=== PATIENT | female | born 1975 | race African-American/Black ===

== ENCOUNTER → 2017-02-21 | Outpatient (CLI) | payer BC ==
--- NOTE | 2017-02-22 15:36 | MY ---
EXAMINATION: Bilateral digital mammography utilizing CAD with left breast ultrasound. HISTORY: Screening exam. No comparisons. FINDINGS: Bilateral heterogeneously dense breast tissue. Otherwise, no suspicious calcifications, masses or architectural distortions. No pathologic appearing lymph nodes, no abnormal skin thickening or nipple inversion. CAD highlighted regions appear normal at this time. Left breast ultrasound was performed demonstrating multiple predominantly simple cysts, the largest measuring 2.1 x 1.3 cm. There are mildly complex cyst noted at the 1 o'clock position measuring 0.8 cm. There is also a cluster of small cysts noted at the 1 o'clock position overall measuring approxi mately 1 cm. These all demonstrate posterior acoustic enhancement and no internal color Doppler flow . IMPRESSION: BI-RADS category III - probably benign. Followup in 6 months with a left breast ultrasound is recommended. THE FALSE-NEGATIVE RATE OF MAMMOGRAM IS APPROXIMATELY 10%. MANAGEMENT OF A PALPABLE ABNORMALITY MUST BE BASED UPON CLINICAL GROUNDS. SENSITIVITY FOR DETECTION OF ABNORMALITIES IN DENSE BREASTS IS LOW. NOTE: A letter will be sent to the patient regarding findings. [facility] -- SUMAYA Noonan [phone] - FAX [phone]
== END ==
LOC: MW.MAM 09:29
PROVIDERS: ATTEND Nurse Practitioner Family
DX: N63 Unspecified lump in breast (principal); Z80.3 Family history of malignant neoplasm of breast
CPT/HCPCS: 76642; G0204

== ENCOUNTER 2018-04-10 08:36 | Day surgery (SDC) | payer BC ==
[~2018-04-10 08:36] MED LIST: Midazolam 1 MG/ML 2 ML SDV ONE; Phenylephrine/Normal Saline 100 MCG/ML 10 ML Syringe ONE; Propofol 200 MG/20 ML SDV ONE; Rocuronium 10 MG/ML 10 ML Syringe ONE; Sodium Chloride 0.9% 10 ML Syringe FLUSH PRN; Sodium Chloride 0.9% 2.5 ML Syringe FLUSH PRN; ceFAZolin 1 GM in Premix Bag 1 BAG IV ONE; ePHEDrine 50 MG/ML SDV ONE; fentaNYL 250 MCG/5 ML SDV ONE
[2018-04-10] MEDS ORDERED: Bupivacaine 0.25% 10 ML SDV ONE (08:43)
[2018-04-10] MEDS ORDERED: Methylene Blue 50 MG/10 ML Ampule ONE (08:43)
--- NOTE | 2018-04-10 09:08 | PCM.PREANE ---
Preanesthetic Assessment - Anesthesia/Transfusion/Family Hx Anesthesia History: No Prior Anesthesia Family History of Anesthesia Reaction: No Transfusion History: No Prior Transfusion(s) - Review of Systems General: No Symptoms Pulmonary: No Symptoms Cardiovascular: No Symptoms Gastrointestinal: No Symptoms Neurological: No Symptoms - Physical Assessment NPO Status Date: 04/09/18 Height: 1.59 m Weight: 59.421 kg ASA Class: 2 Mental Status: Alert & Oriented x3 Airway Class: Mallampati = 1 Dentition: Reports: Normal Dentition ROM/Head Extension: Full Lungs: Clear to Auscultation, Normal Respiratory Effort Cardiovascular: Regular Rate, Regular Rhythm - Allergies Allergies/Adverse Reactions: Allergies Allergy/AdvReac Type Severity Reaction Status Date / Time caffeine Allergy Nausea Verified 04/05/18 10:41 pineapple Allergy scratchy Verified 04/05/18 10:41 throat avacodo Allergy scratchy Uncoded 04/05/18 10:41 throat enviromental allergies Allergy Itching Uncoded 04/05/18 10:41 pet dander Allergy sneezing/water Uncoded 04/05/18 10:41 eyes - Blood Blood Available: Yes Product(s) Available: PRBC - Anesthesia Plan Pre-Op Medication Ordered: None - Acknowledgements Anesthesia Type Planned: General Anesthesia Pt an Appropriate Candidate for the Planned Anesthesia: Yes Alternatives and Risks of Anesthesia Discussed w Pt/Guardian: Yes Pt/Guardian Understands and Agrees with Anesthesia Plan: Yes Additional Comments: PMH: migraines, anemia with recent hb of 9.6. Is type and held PreAnesthesia Questionnaire Cardiovascular History: Reports: Other (See Below) Other Cardiovascular History: elevated BP only during Genitourinary History: Reports: None [employer] History: Reports: Dysfunctional Uterine Bleeding, , Spontaneous Musculoskeletal History: Reports: Back Pain, Chronic Neurological History: Reports: Migraines - Past Surgical History Head Surgeries/Procedures: Reports: None - SUBSTANCE USE Smoking Status *Q: Never Smoker Recreational Drug Use History: No - HOME MEDS Home Medications: Home Meds Ascorbic Acid [Vitamin C] 2 tab.chew CHEW DAILY 04/05/18 [History] Ferrous Sulfate [Iron] 2 tab PO DAILY 04/05/18 [History] L.acidoph,Paracasei, B.lactis [Probiotic] 1 tab.chew CHEW DAILY 04/05/18 [ History] - CURRENT (IN HOUSE) MEDS Current Meds: Current Medications Sodium Chloride (Saline Flush) 10 ml FLUSH ASDIRECTED PRN PRN Reason: Keep Vein Open Sodium Chloride (Saline Flush) 2.5 ml FLUSH ASDIRECTED PRN PRN Reason: Keep Vein Open Discontinued Medications Bupivacaine HCl (Sensorcaine-Mpf 0.25%) Confirm Administered Dose 10 ml .ROUTE .STK-MED ONE Stop: 04/10/18 08:44 Ephedrine Sulfate (Ephedrine Sulfate) Confirm Administered Dose 50 mg .ROUTE .STK-MED ONE Stop: 04/10/18 07:38 Fentanyl (Sublimaze) Confirm Administered Dose 250 mcg .ROUTE .STK-MED ONE Stop: 04/10/18 07:39 Cefazolin Sodium/Dextrose 1 gm (/ Premix) 50 mls @ 100 mls/hr IV ONETIME ONE Stop: 04/10/18 06:22 Lidocaine HCl (Xylocaine-Mpf 1%) 5 ml EPIDUR .STK-MED ONE Stop: 04/10/18 07:36 Methylene Blue (Provayblue) Confirm Administered Dose 50 mg .ROUTE .STK-MED ONE Stop: 04/10/18 08:44 Midazolam HCl (Versed 1 Mg/Ml) Confirm Administered Dose 2 mg .ROUTE .STK-MED ONE Stop: 04/10/18 07:40 Phenylephrine HCl (Phenylephrine In Ns 100 Mcg/Ml) Confirm Administered Dose 1 mg .ROUTE .STK-MED ONE Stop: 04/10/18 07:38 Propofol (Diprivan 20 Ml) Confirm Administered Dose 200 mg .ROUTE .STK-MED ONE Stop: 04/10/18 07:39 Rocuronium [place] (Zemuron) Confirm Administered Dose 100 mg .ROUTE .STK-MED ONE Stop: 04/10/18 07:38
[2018-04-10 09:21] LABS: CHLORIDE,CL 103 mmol/L (98-107); SODIUM,NA 139 mmol/L (136-145)
[2018-04-10] MEDS ORDERED: Furosemide 40 MG/4 ML VIAL ONE (10:04)
[2018-04-10] MEDS ORDERED: Metoprolol Tartrate 5 MG/5 ML SDV ONE (10:04)
[2018-04-10] MEDS ORDERED: Ondansetron 4 MG/2 ML SDV ONE (10:14)
[2018-04-10] MEDS ORDERED: Ketorolac 30 MG/ML SDV ONE (10:14)
[2018-04-10] MEDS ORDERED: Dexamethasone 4 MG/ML 5 ML MDV ONE (10:14)
[2018-04-10] MEDS ORDERED: Fluorescein 5 ML Vial ONE (10:17)
[2018-04-10] MEDS ORDERED: Neostigmine Methylsulfate 1 MG/ML 5 ML Syringe ONE (11:08)
[2018-04-10] MEDS ORDERED: Glycopyrrolate 0.2 MG/ML SDV ONE (11:08)
[2018-04-10] MEDS ORDERED: Promethazine 25 MG/ML SDV IM PRN (11:34)
[2018-04-10] MEDS ORDERED: Morphine 4 MG/ML Syringe IVPUSH PRN (11:34)
[2018-04-10] MEDS ORDERED: Ketorolac 30 MG/ML SDV IVPUSH ONE (11:34)
[2018-04-10] MEDS ORDERED: Ondansetron 4 MG/2 ML SDV IVPUSH PRN (11:34)
[2018-04-10] MEDS ORDERED: Acetaminophen/oxyCODONE 325-5 MG Tab PO PRN (11:34)
[2018-04-10] MEDS ORDERED: Aluminum Hydroxide/Magnesium Hydroxide/Simethicone Susp 30 ML Cup PO PRN (11:34)
[2018-04-10] MEDS ORDERED: HYDROmorphone 2 MG/ML SDV IVPUSH ONE (11:38)
--- NOTE | 2018-04-10 11:47 | PCM.OPNOTE ---
- General Post-Op/Procedure Note Date of Surgery/Procedure: 04/10/18 Operative Procedure(s): LAVH/bilateral salpingectomy/cystoscopy Findings: Bulky fibroid uterus, normal appearing ovaries, bilateral patent ureters Pre Op Diagnosis: Uterine fibroids. Menometrorrhagia. Iron deficiency anemia Post-Op Diagnosis: Same Anesthesia Technique: General ET Tube Primary Surgeon: Suly Spence Manager Monitoring: Loco Ortega Pathology: uterus, tubes Fluid Replacement, Intraop: 1,300 EBL in mLs: 200 Complications: none known Condition: Good Free Text/Narrative:: Dictation [id number]
[2018-04-10] MEDS: fentaNYL 100 MCG/2 ML SDV IVPUSH PRN ×2 (11:50→11:55)
--- NOTE | 2018-04-10 12:31 | PCM.POSTAN ---
POST ANESTHESIA ASSESSMENT - MENTAL STATUS Mental Status: Alert, Oriented - RESPIRATORY Respiratory Status: Respiratory Rate WNL, Airway Patent, O2 Saturation Stable - CARDIOVASCULAR CV Status: Pulse Rate WNL, Blood Pressure Stable - GASTROINTESTINAL GI Status: No Symptoms - POST OP HYDRATION Hydration Status: Adequate & Stable
[2018-04-10] MEDS: Acetaminophen/oxyCODONE 325-5 MG Tab PO PRN (13:36)
--- NOTE | 2018-04-10 17:49 | OR ---
SURGEON: Suly Spence M.D. DATE OF PROCEDURE: 04/10/2018 PREOPERATIVE DIAGNOSES: 1. Uterine fibroids. 2. Menometrorrhagia. 3. Iron-deficiency anemia. POSTOPERATIVE DIAGNOSES: 1. Uterine fibroids. 2. Menometrorrhagia. 3. Iron-deficiency anemia. PROCEDURES: Laparoscopic-assisted vaginal hysterectomy, bilateral salpingectomy, cystoscopy. ANESTHESIA: General endotracheal anesthesia. RETURNED GOODS RECEIVING CLERK: Loco Ortega MD ESTIMATED BLOOD LOSS: 200 mL. FLUIDS: 1300 mL of crystalloid. COMPLICATIONS: None known. FINDINGS: Bulky fibroid uterus. Normal-appearing ovaries. Bilateral patent ureters with cystoscopy. DISPOSITION: The patient to PACU. SPECIMENS: Pathology. PROCEDURE IN DETAIL: Alejandra is a 42-year-old female, who has been struggling with menometrorrhagia secondary to uterine fibroid with submucosal component. After discussing her options, she would like to proceed with definitive intervention in the form of hysterectomy. Risks of the procedure have been discussed with her and proper consent obtained. The patient was taken to the operating room and underwent general endotracheal anesthesia, was placed in modified dorsal position, prepped and draped in the usual sterile fashion. SCDs lower extremities. Received Ancef prophylactically. Time-out was performed. The bladder was back filled with methylene blue. Attention was turned vaginally. Speculum was introduced. Anterior lip of cervix was grasped with an Allis clamp, and uterine HUMI manipulator was gently placed. Balloon insufflated, and then the speculum and Allis clamps were now removed. Gloves changed. Attention turned abdominally. Infraumbilically, 0.25% Marcaine was introduced in the midline. Please see nurse's notes for total amount dispensed during the procedure. A 5-mm infraumbilical midline sagittal skin incision was created, anterior abdominal wall tented upward. A Veress needle was introduced. Saline hanging drop test was performed. Pneumoperitoneum was achieved. The Veress needle was removed. A 5 mm trocar was introduced followed by laparoscope, peritoneal contents were identified. There is a left lower quadrant, right lower quadrant 5 mm trocar introduced after prepping the regions with 0.25% Marcaine and creating 5 mm skin incision. The uterus appeared bulky and enlarged, was able to visualize the pelvic sidewalls on either side and seeing the ureter peristalsing away from operative field. The left fallopian tube was tented upward and the salpingectomy was performed to the level of the cornu using LigaSure, was able to secure the utero tubo-ovarian pedicle, cauterized, and transected with LigaSure followed by the upper portion of the broad ligament. The mid broad ligament round ligament, base of the broad ligament. The peritoneum was now tented upward along the uterovesical reflection and transected with LigaSure. The right fallopian tube was tented upward and the salpingectomy was performed to cornua. The utero tubo-ovarian pedicle was able to be secured and transected followed by the broad ligament, mid broad ligament, round ligament, base of the broad ligament, and cardinal ligament. The uterovesical peritoneum was now bluntly dissected off the lower uterine segment bladder using hydrodissection. The pneumoperitoneum was now released. Laparoscopic instruments were removed, and attention was turned vaginally. A weighted speculum was placed vaginally, anterior Estela. Mimi was tented downward and the cervix was circumscribed with Bovie cautery. Anterior and posteriorly overlying mucosa was dissected away from underlying peritoneum. Peritoneum was dissected downward posteriorly and entered sharply. Longer weighted speculum was replaced with the shorter. Peritoneal contents were identified anteriorly, was able to gently dissect sharply along the peritoneum and entered the anterior cul-de-sac. Estela was placed to mobilize the bladder away from the operative field. Michelle clamp was utilized on either side to secure uterosacral ligament, transected and suture ligated with 2-0 Vicryl. Further pedicle on either side was able to be secured, transected, and suture ligated with 2-0 Vicryl. The uterus, cervix, fallopian tubes were able to be removed and handed off to accessibility lift technician to be sent to pathology. The pedicles were now closely inspected. The uterosacral ligament was plicated to the vaginal apex on either side. Hemostasis appeared evident. The cuff was now closed using 0 Vicryl in continuous running locked fashion. The cuff line inspected, found to be hemostatic except for small area in the midline, which was repaired with a single [id number] suture. Hemostasis thereafter evident. The Paz catheter had been released. Balloon desufflated and the catheter was removed. The patient had received IV Lasix in and fluorescein. The cystoscope was now gently introduced using normal saline as distention media was able to visualize the bladder. The dome of bladder was found to be intact. Trigone was also inspected and found to be intact. The right ureteral orifice followed by the left ureteral orifice was able to be visualized. Fluorescein dyed urine was seen streaming from them, helping to ensure ureteral patency. The bladder was now drained. Paz catheter was replaced. The cuff line was again inspected and found to be hemostatic. Gloves changed. Attention turned abdominally. Pneumoperitoneum was once again achieved. The laparoscope was introduced. The pelvis inspected. The pedicles were found to be hemostatic. The pelvis was copiously irrigated and suction irrigated. The relief pressure was decreased to 5 mmHg and once again inspected the pedicles, these were found to be hemostatic. Therefore, the pneumoperitoneum was released. The trocars removed under direct visualization followed by laparoscopic infraumbilical trocar. The skin edges were reapproximated using 3-0 Monocryl in subcuticular fashion. Sponge, instrument, needle counts correct x2. The patient tolerated the procedure well overall. She will go to PACU in stable condition. Specimens to pathology. OLVIN / TUCKER /[id number]
--- NOTE | 2018-04-10 18:12 | PCM.SN ---
- Free Text/Narrative Note: patient is having nausea and is cramping. She is not tolerating a regular diet yet. Explained intraop findings and procedure. Will treat with antiemetics. BPs have been stable overall, most recent diastolic BPs are just mildly elevated. Received beta bill and hydralazine intraop Continue postoperative cares. Monitor BPs. Antiemetics as needed. Labs in am.
[2018-04-10] MEDS: Ketorolac 30 MG/ML SDV IVPUSH PRN (20:01)
[2018-04-10] MEDS: Docusate Sodium 100 MG Cap PO SCH (20:02)
[2018-04-11 06:49] LABS: CHLORIDE,CL 99 mmol/L (98-107); SODIUM,NA 134 mmol/L (136-145)
[2018-04-11] MEDS: Docusate Sodium 100 MG Cap PO SCH (08:21)
[2018-04-11] MEDS: Acetaminophen/oxyCODONE 325-5 MG Tab PO PRN (08:35)
[2018-04-11] MEDS ORDERED: hydrALAZINE 20 MG/ML SDV IVPUSH ONE (09:16)
[2018-04-11] MEDS: Ketorolac 30 MG/ML SDV IVPUSH PRN (09:25)
--- NOTE | 2018-04-11 10:12 | PCM48HPAN ---
Post Anesthesia Note - EVALUATION WITHIN 48HRS OF ANESTHETIC Vital Signs in Normal Range: Yes Patient Participated in Evaluation: Yes Respiratory Function Stable: Yes Airway Patent: Yes Cardiovascular Function Stable: Yes Hydration Status Stable: Yes Pain Control Satisfactory: Yes Nausea and Vomiting Control Satisfactory: Yes Mental Status Recovered: Yes Resp Rate: 18 - COMMENTS/OBSERVATIONS Free Text/Narrative:: Has been OOB with two urinations, feels good, awaiting visit from her surgeon.
--- NOTE | 2018-04-11 10:27 | PCM.SURGPN ---
- General Info Date of Service: 04/11/18 POD#: 1 Functional Status: Reports: Pain Controlled, Tolerating Diet, Ambulating, Urinating - Review of Systems General: Denies: Fever Pulmonary: Denies: Shortness of Breath Cardiovascular: Denies: Chest Pain, Palpitations, Lightheadedness Gastrointestinal: Reports: Flatus. Denies: Abdominal Pain, Nausea, Vomiting Genitourinary: Denies: Flank Pain Neurological: Reports: No Symptoms. Denies: Dizziness, Headache Psychiatric: Reports: No Symptoms - Patient Data Vitals - Most Recent: Last Vital Signs Temp 37.3 C 04/11/18 08:22 Pulse 98 04/11/18 07:32 Resp 18 04/11/18 10:11 BP 184/100 H 04/11/18 08:58 Pulse Ox 98 04/11/18 07:32 Weight - Most Recent: 59.421 kg I&O - Last 24 Hours: Intake & Output 04/10/18 04/11/18 04/11/18 22:59 06:59 14:59 Intake Total 450 300 Output Total 1000 1600 Balance -550 -1300 Lab Results Last 24 Hrs: Laboratory Results - last 24 hr 04/11/18 04/11/18 Range/Units 04:55 04:55 WBC 6.84 (4.0-11.0) K/uL RBC 4.97 (4.30-5.90) M/uL Hgb 9.7 L (12.0-16.0) g/dL Hct 31.2 L (36.0-46.0) % MCV 62.8 L (80.0-98.0) fL MCH 19.5 L (27.0-32.0) pg MCHC 31.1 (31.0-37.0) g/dL RDW Std Deviation 41.4 (28.0-62.0) fl RDW Coeff of Aminta 18 H (11.0-15.0) % Plt Count 572 H (150-400) K/uL MPV 10.20 (7.40-12.00) fL Neut % (Auto) 73.0 (48.0-80.0) % Lymph % (Auto) 19.9 (16.0-40.0) % Sharp % (Auto) 7.0 (0.0-15.0) % Eos % (Auto) 0.0 (0.0-7.0) % Baso % (Auto) 0.1 (0.0-1.5) % Neut # (Auto) 5.0 (1.4-5.7) K/uL Lymph # (Auto) 1.4 (0.6-2.4) K/uL Sharp # (Auto) 0.5 (0.0-0.8) K/uL Eos # (Auto) 0.0 (0.0-0.7) K/uL Baso # (Auto) 0.0 (0.0-0.1) K/uL Nucleated RBC % 0.0 /100WBC Nucleated RBCs # 0 K/uL Sodium 134 L (136-145) mmol/L Potassium 4.1 (3.5-5.1) mmol/L Chloride 99 (98-107) mmol/L Carbon Dioxide 28.5 (21.0-32.0) mmol/L BUN 16 (7.0-18.0) mg/dL Creatinine 0.9 (0.6-1.0) mg/dL Est Cr Clr Drug Dosing 65.21 mL/min Estimated GFR (MDRD) > 60.0 ml/min Glucose 120 H (74-106) mg/dL Calcium 8.9 (8.5-10.1) mg/dL Med Orders - Current: Current Medications Al Hydroxide/Mg Hydroxide (Mag-Al Plus) 30 ml PO Q4H PRN PRN Reason: Indigestion Docusate Sodium (Colace) 100 mg PO BID LC Last Admin: 04/11/18 08:21 Dose: 100 mg Fentanyl (Sublimaze) 50 mcg IVPUSH Q5M PRN PRN Reason: Pain (severe 7-10) Stop: 04/11/18 11:39 Last Admin: 04/10/18 11:55 Dose: 50 mcg Ketorolac Tromethamine (Toradol) 30 mg IVPUSH Q6H PRN PRN Reason: Pain (severe 7-10) Stop: 04/15/18 11:34 Last Admin: 04/11/18 09:25 Dose: 30 mg Morphine Sulfate (Morphine) 4 mg IVPUSH Q2H PRN PRN Reason: Pain (severe 7-10) Last Admin: 04/10/18 15:32 Dose: 4 mg Ondansetron HCl (Zofran) 4 mg IVPUSH Q6H PRN PRN Reason: Nausea/Vomiting Last Admin: 04/10/18 18:02 Dose: 4 mg Oxycodone/Acetaminophen (Percocet 325-5 Mg) 1 tab PO Q4H PRN PRN Reason: Pain (moderate 4-6) Oxycodone/Acetaminophen (Percocet 325-5 Mg) 2 tab PO Q4H PRN PRN Reason: Pain (moderate 4-6) Last Admin: 04/11/18 08:35 Dose: 2 tab Promethazine HCl (Phenergan) 25 mg IM Q6H PRN PRN Reason: Nausea/Vomiting Sodium Chloride (Saline Flush) 10 ml FLUSH ASDIRECTED PRN PRN Reason: Keep Vein Open Sodium Chloride (Saline Flush) 2.5 ml FLUSH ASDIRECTED PRN PRN Reason: Keep Vein Open Discontinued Medications Bupivacaine HCl (Sensorcaine-Mpf 0.25%) Confirm Administered Dose 10 ml .ROUTE .STK-MED ONE Stop: 04/10/18 08:44 Dexamethasone (Dexamethasone) Confirm Administered Dose 20 mg .ROUTE .STK-MED ONE Stop: 04/10/18 10:15 Ephedrine Sulfate (Ephedrine Sulfate) Confirm Administered Dose 50 mg .ROUTE .STK-MED ONE Stop: 04/10/18 07:38 Fentanyl (Sublimaze) Confirm Administered Dose 250 mcg .ROUTE .STK-MED ONE Stop: 04/10/18 07:39 Fluorescein Sodium (Ak-Fluor) Confirm Administered Dose 5 ml .ROUTE .STK-MED ONE Stop: 04/10/18 10:18 Furosemide (Lasix) Confirm Administered Dose 40 mg .ROUTE .STK-MED ONE Stop: 04/10/18 10:05 Glycopyrrolate (Robinul) Confirm Administered Dose 0.6 mg .ROUTE .STK-MED ONE Stop: 04/10/18 11:09 Hydralazine HCl (Apresoline) 5 mg IVPUSH ONETIME ONE Stop: 04/11/18 09:17 Last Admin: 04/11/18 09:24 Dose: 5 mg Hydromorphone HCl (Dilaudid) 2 mg IVPUSH ONETIME ONE Stop: 04/10/18 11:39 Last Admin: 04/10/18 12:48 Dose: Not Given Cefazolin Sodium/Dextrose 1 gm (/ Premix) 50 mls @ 100 mls/hr IV ONETIME ONE Stop: 04/10/18 06:22 Last Admin: 04/10/18 12:47 Dose: Not Given Ketorolac Tromethamine (Toradol) Confirm Administered Dose 30 mg .ROUTE .STK- MED ONE Stop: 04/10/18 10:15 Ketorolac Tromethamine (Toradol) 30 mg IVPUSH ONETIME ONE Stop: 04/10/18 11:35 Last Admin: 04/10/18 12:47 Dose: Not Given Lidocaine HCl (Xylocaine-Mpf 1%) 5 ml EPIDUR .STK-MED ONE Stop: 04/10/18 07:36 Methylene Blue (Provayblue) Confirm Administered Dose 50 mg .ROUTE .STK-MED ONE Stop: 04/10/18 08:44 Metoprolol Tartrate (Lopressor) Confirm Administered Dose 5 mg .ROUTE .STK-MED ONE Stop: 04/10/18 10:05 Midazolam HCl (Versed 1 Mg/Ml) Confirm Administered Dose 2 mg .ROUTE .STK-MED ONE Stop: 04/10/18 07:40 Neostigmine Methylsulfate (Neostigmine) Confirm Administered Dose 5 mg .ROUTE .STK-MED ONE Stop: 04/10/18 11:09 Ondansetron HCl (Zofran) Confirm Administered Dose 4 mg .ROUTE .STK-MED ONE Stop: 04/10/18 10:15 Phenylephrine HCl (Phenylephrine In Ns 100 Mcg/Ml) Confirm Administered Dose 1 mg .ROUTE .STK-MED ONE Stop: 04/10/18 07:38 Propofol (Diprivan 20 Ml) Confirm Administered Dose 200 mg .ROUTE .STK-MED ONE Stop: 04/10/18 07:39 Rocuronium [place] (Zemuron) Confirm Administered Dose 100 mg .ROUTE .STK-MED ONE Stop: 04/10/18 07:38 - Exam Wound/Incisions: No Drainage. No: Erythema General: Alert, Oriented Lungs: Normal Respiratory Effort Cardiovascular: Regular Rate, Regular Rhythm GI/Abdominal Exam: Normal Bowel Sounds, Soft. No: Guarding, Rebound Extremities: Pedal Edema (trace). No: Maria Isabel's Sign Skin: Warm, Dry, Intact Psy/Mental Status: Alert - Problem List & Annotations (1) Leiomyoma SNOMED Code(s): 653827646637218, 324209453105189 Code(s): D21.9 - BENIGN NEOPLASM OF CONNECTIVE AND OTHER SOFT TISSUE, UNSP Status: Acute Current Visit: Yes (2) Menometrorrhagia SNOMED Code(s): 224864570 Code(s): N92.1 - EXCESSIVE AND FREQUENT MENSTRUATION WITH IRREGULAR CYCLE Status: Acute Current Visit: Yes - Problem List Review Problem List Initiated/Reviewed/Updated: Yes - My Orders Last 24 Hours: Active Orders 24 hr Category Date Time Status Patient Status [ADT] Routine ADT 04/10/18 11:34 Active Notify Provider Intake and Out [RC] ASDIRECTED Care 04/10/18 11:34 Active Notify Provider Vital Signs [RC] ASDIRECTED Care 04/10/18 11:34 Active RT Incentive Spirometry [RC] Q2HWA Care 04/10/18 11:34 Active Ready for Discharge [RC] PER UNIT ROUTINE Care 04/11/18 10:22 Ordered Up With Assistance [RC] PER UNIT ROUTINE Care 04/10/18 11:34 Active Up ad Lucretia [RC] PER UNIT ROUTINE Care 04/10/18 11:34 Active Urinary Catheter Removal [RC] Per Unit Routine Care 04/10/18 11:34 Active Vital Signs [RC] PER UNIT ROUTINE Care 04/10/18 11:34 Active Regular Diet [DIET] Diet 04/10/18 Dinner Active Acetaminophen/oxyCODONE [Percocet 325-5 MG] Med 04/10/18 11:34 Active 1 tab PO Q4H PRN Acetaminophen/oxyCODONE [Percocet 325-5 MG] Med 04/10/18 11:34 Active 2 tab PO Q4H PRN Alum Hydrox/Mag Hydrox/Simeth [Mag-Al Plus] Med 04/10/18 11:34 Active 30 ml PO Q4H PRN Docusate Sodium [Colace] Med 04/10/18 21:00 Active 100 mg PO BID Ketorolac [Toradol] Med 04/10/18 11:34 Active 30 mg IVPUSH Q6H PRN Morphine Med 04/10/18 11:34 Active 4 mg IVPUSH Q2H PRN Ondansetron [Zofran] Med 04/10/18 11:34 Active 4 mg IVPUSH Q6H PRN Promethazine [Phenergan] Med 04/10/18 11:34 Active 25 mg IM Q6H PRN fentaNYL [Sublimaze] Med 04/10/18 11:38 Active 50 mcg IVPUSH Q5M PRN Ice Therapy [OM.PC] Per Unit Routine Oth 04/10/18 11:35 Ordered Peripheral IV Discontinue [OM.PC] Routine Oth 04/10/18 11:34 Ordered Sequential Compression Device [OM.PC] Per Unit Routine Oth 04/10/18 11:34 Ordered Resuscitation Status Routine Resus Stat 04/10/18 11:34 Ordered Medication Orders Al Hydroxide/Mg Hydroxide (Mag-Al Plus) 30 ml PO Q4H PRN PRN Reason: Indigestion Docusate Sodium (Colace) 100 mg PO BID LC Last Admin: 04/11/18 08:21 Dose: 100 mg Admin: 04/10/18 20:02 Dose: 100 mg Fentanyl (Sublimaze) 50 mcg IVPUSH Q5M PRN PRN Reason: Pain (severe 7-10) Stop: 04/11/18 11:39 Last Admin: 04/10/18 11:55 Dose: 50 mcg Admin: 04/10/18 11:50 Dose: 50 mcg Ketorolac Tromethamine (Toradol) 30 mg IVPUSH Q6H PRN PRN Reason: Pain (severe 7-10) Stop: 04/15/18 11:34 Last Admin: 04/11/18 09:25 Dose: 30 mg Admin: 04/10/18 20:01 Dose: 30 mg Morphine Sulfate (Morphine) 4 mg IVPUSH Q2H PRN PRN Reason: Pain (severe 7-10) Last Admin: 04/10/18 15:32 Dose: 4 mg Ondansetron HCl (Zofran) 4 mg IVPUSH Q6H PRN PRN Reason: Nausea/Vomiting Last Admin: 04/10/18 18:02 Dose: 4 mg Oxycodone/Acetaminophen (Percocet 325-5 Mg) 1 tab PO Q4H PRN PRN Reason: Pain (moderate 4-6) Oxycodone/Acetaminophen (Percocet 325-5 Mg) 2 tab PO Q4H PRN PRN Reason: Pain (moderate 4-6) Last Admin: 04/11/18 08:35 Dose: 2 tab Admin: 04/10/18 13:36 Dose: 2 tab Promethazine HCl (Phenergan) 25 mg IM Q6H PRN PRN Reason: Nausea/Vomiting Sodium Chloride (Saline Flush) 10 ml FLUSH ASDIRECTED PRN PRN Reason: Keep Vein Open Sodium Chloride (Saline Flush) 2.5 ml FLUSH ASDIRECTED PRN PRN Reason: Keep Vein Open - Assessment Assessment (Free Text/Narrative):: POD 1 status post LAVH/Bilateral salpingectomy/cystoscopy Elevated blood pressures - Plan Plan (Free Text/Narrative):: Overall, patient is doing well. She is ambulating, voiding, tolerating regular diet and pain is controlled by oral pain meds. She has some elevated blood pressures again this morning--does not have preexisting hypertension. Treated with iv hydralazine and start calcium channel bill as beta bill did not control well in OR yesterday. Once blood pressure normalizes, allow discharge to home. Discharge instructions reviewed. Infection and bleeding warnings reviewed. Follow up at [facility] 2 and 6 weeks. Continue iron therapy--hemoglobin and labs stable this morning.
== END 2018-04-11 11:17 | disposition home or self-care (01) ==
LOC: MW.SDS 08:36 → MW.MS 12:52 → MW.SDS 04-11 11:17
PROVIDERS: ATTEND Obstetrics & Gynecology
DX: D25.1 Intramural leiomyoma of uterus (principal); J30.9 Allergic rhinitis, unspecified; G43.909 Migraine, unspecified, not intractable, without status migrainosus; Z91.018 Allergy to other foods; Z79.899 Other long term (current) drug therapy; Z91.09 Other allergy status, other than to drugs and biological substances
CPT/HCPCS: 36415; 58552; 80048; 84703; 85025; 86850; 86900; 86901; A9270; J0360; J1100; J1885; J1940; J2250; J2270; J2405; J3010; 88309; J2704